=== PATIENT | male | born 1980 | race Caucasian/White ===

== ENCOUNTER 2019-07-30 15:02 | Emergency (ER) | payer SELFPAY ==
[~2019-07-30] VITALS: Ht 172.7 cm; Wt 70.0 kg
[2019-07-30 15:18] VITALS: BP 121/82
--- NOTE | 2019-07-30 16:12 | NUR ---
PATIENT BROUGHT BACK FROM TRIAGE WITH CHIEF COMPLAINT OF BILAT FOOT PAIN AND TINGLING FOR ONE WEEK.
[2019-07-30] MEDS ORDERED: ACETAMINOPHEN 500 MG TABLET ONE (16:45)
[2019-07-30] MEDS ORDERED: IBUPROFEN 200 MG TABLET ONE (16:45)
[2019-07-30] MEDS ORDERED: ACETAMINOPHEN 500 MG TABLET PO ONE (17:00)
[2019-07-30] MEDS ORDERED: IBUPROFEN 800 MG TABLET PO ONE (17:00)
== END 2019-07-30 16:55 | disposition home or self-care (01) ==
LOC: ED 16:45
DX: M72.2 Plantar fascial fibromatosis (principal)
CPT/HCPCS: 99283